=== PATIENT | female | born 1960 | race Asian ===

== ENCOUNTER 2016-11-27 15:53 | Emergency (ER) | payer MEDICAID ==
[~2016-11-27] VITALS: Ht 162.6 cm; Wt 83.0 kg
[~2016-11-27 15:53] MED LIST: MULT-516 PO; VITAMIN C PO
[2016-11-27 16:25] VITALS: BP 132/86
[2016-11-27] MEDS ORDERED: IBUPROFEN 200 MG TABLET PO ONE (16:30)
== END 2016-11-27 17:27 | disposition home or self-care (01) ==
LOC: ED 17:16
DX: M19.90 Unspecified osteoarthritis, unspecified site (principal); M25.561 Pain in right knee
CPT/HCPCS: 99283

== ENCOUNTER 2017-01-09 19:10 | Emergency (ER) | payer MEDICAID ==
[~2017-01-09] VITALS: Ht 162.6 cm; Wt 80.0 kg
[2017-01-09 20:34] VITALS: BP 141/78
== END 2017-01-09 20:37 | disposition home or self-care (01) ==
LOC: ED 20:30
DX: M25.561 Pain in right knee (principal); M13.10 Monoarthritis, not elsewhere classified, unspecified site
CPT/HCPCS: 29505